=== PATIENT | female | born 1995 | race Caucasian/White ===

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

== ENCOUNTER 2017-11-09 00:11 | Emergency (ER) | payer SELFPAY ==
[~2017-11-09] VITALS: Ht 165.1 cm; Wt 54.5 kg
[~2017-11-09 00:11] MED LIST: Crutches; FLEXERIL 1010 MG/TAB PO; NORCO 325 MG-51 TAB PO
[2017-11-09 00:22] VITALS: BP 115/74; TEMP 98.5
[2017-11-09] MEDS ORDERED: PERIDEX (CHLOR480 ML MM (00:58)
[2017-11-09] MEDS ORDERED: AMOXICILLIN 8751 TAB PO (00:58)
[2017-11-09 01:46] LABS: HIV 1/2 Antibodies Non-Reactive; HIV-1p24 Antigen Non-Reactive
[2017-11-09 02:06] VITALS: PULSE 65
== END 2017-11-09 02:05 | disposition home or self-care (01) ==
LOC: COL.ER 00:11
PROVIDERS: Physician Assistant
DX: A69.1 Other Vincent's infections (principal)

== ENCOUNTER 2018-08-20 13:27 | Outpatient (RCR) | payer OTHER ==
[~2018-08-20 13:27] MED LIST changes: +AMOXICILLIN 8751 TAB PO; +PERIDEX (CHLOR480 ML MM
== END 2018-08-27 13:03 | disposition home or self-care (01) ==
LOC: WSOH 13:27
DX: Z01.89 Encounter for other specified special examinations (principal)

== ENCOUNTER 2018-09-17 13:40 | Outpatient (RCR) | payer OTHER | END 2018-09-24 15:27 | disposition home or self-care (01) | LOC: WSOH 13:40 | DX: S80.01XA Contusion of right knee, initial encounter (principal); S80.211A Abrasion, right knee, initial encounter; V87.8XXA Person injured in other specified noncollision transport accidents involving motor vehicle (traffic), initial encounter; Y92.89 Other specified places as the place of occurrence of the external cause; Y99.0 Civilian activity done for income or pay ==

== ENCOUNTER 2019-01-18 01:18 | Inpatient (IN) | payer MEDICAID ==
[~2019-01-18] VITALS: Ht 162.6 cm; Wt 63.2 kg
[2019-01-18] VITALS (29 sets, daily range): BP systolic 96–126; BP diastolic 50–77; PULSE 55–100; TEMP 97.5–98.3
--- NOTE | 2019-01-18 01:40 | NUR ---
0140 G1LO 37.1 WEEK GEST TO LR3 WITH C/O SROM. EFM ON. SVE /-2 LEAKING LARGE AMT CL FLUID. PT DID NOT RECEIVE CARE UNTIL 33 WEEKS. STATES PLANNING ON ADOPTING THIS BABY OUT. 0150 DR MEEK NOTIFIED AND ADM ORDER RECEIVED.
[2019-01-18 03:27] LABS: BASO % 0.3 % (0.0-2.0); EOS # 0.2 (0.0-0.7); EOS % 1.4 % (0-4.0); GRAN # 8.1 (1.4-6.5); GRAN % 65.6 % (42.2-75.2); HEMOGLOBIN 10.3 g/dl (12.5-16.0); LYMPH % 24.5 % (20.0-51.0); MEAN CELL VOLUME 92 fl (80.0-100.0); MEAN CORPUSCULAR HEMOGLOBIN 30 pg (27.0-31.0); MEAN CORPUSCULAR HGB CONC 33 g/dl (33.0-37.0); MEAN PLATELET VOLUME 11.5 fl (7.4-10.4); MONO # 0.9 (0.1-0.6); MONO % 7.5 % (1.7-9.3); PLATELET COUNT 234 K/mm3 (130-400); RED BLOOD COUNT 3.41 M/mm3 (4.10-5.30); REDCELL DISTRIBUTION WIDTH-CV 12.8 % (11.5-14.5)
[2019-01-18 03:28] LABS: HEMATOCRIT 31.3 % (37.0-47.0)
--- NOTE | 2019-01-18 03:31 | NUR ---
BABY FOR ADOPTION/LIFE CHOICE MINISTRIES, SREE SUPPORT PERSON. [place] IN [place] TO ARRIVE AT 10 AM- [employer]
--- NOTE | 2019-01-18 03:45 | NUR ---
BREATHING HARD WITH [facility]- OFFERED TO DO SVE FOR EPIDURAL POSSIBLY- PT NOT READY FOR EXAM. WANTS TO WAIT
--- NOTE | 2019-01-18 04:00 | NUR ---
[facility] PARENTS HERE IN ROOM FOR BRIEF VISIT. PT STATES THEY MAY COME AND GO DURING LABOR BUT AT TIME OF DELIVERY ONLY CATHIE HA IS TO BE PRESENT
--- NOTE | 2019-01-18 06:25 | NUR ---
Report from Chinyere Mosqueda RN and care of patient assumed. Patient wakes up from nap and is very disoriented. Confused as to why her "legs are numb". Epidural explained again to patient, verbalizes understanding but still seems disoriented. Safety reviewed, support person remains at bedside. 0635- See EMAR, Zofran given for nausea. 0645- SVE /+1. Patient encouraged to notify RN with increased pressure. Mcfadden catheter placed, UDS collected and sent per late [facility] protocol. 0713- Dr. Recinos notified and updated on patient assessment. Reviewed SVE /+ and reviewed patient behavior. Patient very numb with epidural. UDS sent for protocol. Reviewed FHR strip and contraction pattern. No new orders recieved, notify with SVE 10 cm. Patient updated on plan of care.
--- NOTE | 2019-01-18 06:31 | NUR ---
MORE COMFORTABLE NOW AFTER REDOSE
[2019-01-18 07:19] LABS: TRICYCLIC ANTIDEPRESS URINE NEGATIVE
--- NOTE | 2019-01-18 08:25 | NUR ---
0825- SVE 10/+2. Patient reports urge to push. See physician notification. Mcfadden catheter removed prior to pushing. Pericare given. Patient coached on pushing. 0848- Patient begins pushing with contractions with RN at bedside. Moves vertex very well, encouraged to deep breathe through contractions at this time. Dr. Recinos notified and requested for delivery at 0849. RN remains at bedside. 0858- Dr. Recinos at bedside. Patient pushes with contractions, prepped for impending delivery. Assisted to footplates, Nursery RN to bedside. 0904- of viable female attended by Dr. Recinos. to mother's abdomen, care of to Efren Hernandez RN. Apgars 8/8/9. 0910- SPont. delivery of placenta. Pitocin bolus infusing per protocol. Bilateral superficial lacerations repaired by physician, patient tolerates well. Vaginal bleeding WNL, pericare given and ice pack applied. Patient updated on plan of care and safety.
[2019-01-19 04:15] VITALS: BP 98/56; PULSE 69; TEMP 97.8
[2019-01-19 07:55] VITALS: BP 98/65; PULSE 74; TEMP 97.7
[2019-01-19] MEDS ORDERED: PERCOCET 325 MG1 TA2 PO (09:25)
[2019-01-19] MEDS ORDERED: MOTRIN 600600 MG/TAB PO (09:25)
--- NOTE | 2019-01-19 11:45 | NUR ---
SW recieved consult for patient adopt out services. Patient has choosen to adopt out baby to a couple using [employer] (Nyla) and [employer] Super[employer] Cedric Varghese. Patient was present with child's father who was also in agreement with adoption of . Father states, "Niether one of use has the time." Patient filled out the Authorization for release, consent for visitation, Adoption Resources, mother preference sheet. Patient indciated that she is aware of resources to her. CAR offered community supports and therapy services. CAR made copies of PPW and placed a copy in the parent's chart. Nothing further.
--- NOTE | 2019-01-19 14:42 | NUR ---
1300 pt signed paperwork with teacher aide clerical to give consent privileges to adoptive parents. mother to nursery to hold infant prior to transferring to [facility]. 1410- mother discharged from unit with FOB. all questions answered at this time.
== END 2019-01-19 14:10 | disposition home or self-care (01) | DRG 807 ==
LOC: LDRO 01:18 → LDR 01:30 → OB 11:45
PROVIDERS: ADMIT Obstetrics & Gynecology
PROC: 10E0XZZ Delivery of Products of Conception, External Approach (ICD-10-PCS; principal; 2019-01-18)
PROC: 0UQMXZZ Repair Vulva, External Approach (ICD-10-PCS; 2019-01-18)
DX: O99.02 Anemia complicating childbirth (principal); Z37.0 Single live birth; O70.0 First degree perineal laceration during delivery; D64.9 Anemia, unspecified; Z23 Encounter for immunization; Z3A.37 37 weeks gestation of pregnancy
CPT/HCPCS: J2405; J2590; J7120